=== PATIENT | male | born 1990 | race African-American/Black ===

== ENCOUNTER 2019-03-07 08:59 | Emergency (ER) | payer OTHER, SELFPAY ==
[2019-03-07 09:05] VITALS: BP 139/87; PULSE 81; RESP 18; TEMP 36.2; O2SAT 99; BMI 33.7
--- NOTE | 2019-03-07 09:54 | ED.BACK ---
HPI - Back Pain/Injury General Chief Complaint: Back Pain/Injury Stated Complaint: NECK AND BACK PAIN Time Seen by Provider: 03/07/19 09:54 Source: patient Mode of arrival: ambulatory Limitations: no limitations History of Present Illness HPI Narrative: 28-year-old male comes to the emergency department with complaint of neck pain that radiates particularly to his right shoulder. Patient states that it is particularly uncomfortable when he stands up or rotates his neck does not matter if he is rotating left or right. Patient also states if he tries to lift weights if he tries to push his arms above his head it is very uncomfortable. He denies any radiation all way down his arm, he denies any weakness, numbness or difficulty with employee relations assistant. He denies any trauma, recent injuries. He denies any other medical problems. He has had a microdiskectomy on his lumbar spine. He has been taking Motrin 600 mg with some improvement. Patient has not been lifting weights since he started having symptoms. He states it does feel little bit tight and almost a burning sensation. Related Data Previous Rx's Medication Instructions Recorded prednisone 50 mg PO DAILY #5 tab 03/07/19 tramadol [Ultram] 50 mg PO Q6H PRN #10 tab 03/07/19 Allergies Allergy/AdvReac Type Severity Reaction Status Date / Time No Known Allergies Allergy Uncoded 03/07/19 09:23 Review of Systems Review of Systems ROS Unobtainable: All systems reviewed & are unremarkable except as noted in HPI and below Constitutional Denies chills and Denies fever(s) ENT Ears, Nose, Mouth, and Throat: Reports neck pain Cardiovascular Denies chest pain and Denies dyspnea Respiratory Denies dyspnea Gastrointestinal Gastrointestinal: Denies abdominal pain, Denies change in bowel habits, Denies fecal incontinence, Denies diarrhea, Denies nausea and Denies vomiting Genitourinary Denies urinary frequency, Denies urinary incontinence and Denies urinary urgency Musculoskeletal Reports as per HPI, Denies muscle weakness, Reports neck pain, Denies numbness, Reports radiating pain into limb (right ) and Denies tingling Neurologic Denies focal weakness, Denies numbness, Denies sensory deficit and Denies tingling PFS Surgical History (Updated 03/07/19 @ 10:23 by Fernanda Torres DO) S/P lumbar microdiscectomy (Chronic) Social History Smoking Status: Never smoker Social History Smoking Status: Never smoker Exam Narrative Exam Narrative: GENERAL: Alert and oriented x three, large, well-appearing male in mild distress. HEENT: Head normocephalic, atraumatic, EOMI, pupils reactive, face symmetric, moist mucous membranes NECK: Supple, full range of motion although patient moves his neck slowly. He holds his neck in very straight alignment. Patient has increased pain with Spurling's particularly on the right, S patient states he can't notices symptoms are increased on the left but not a significantly. No bony tenderness of the cervical, thoracic or lumbar spine. CARDIOVASCULAR: Regular rate and rhythm without murmurs, rubs or gallops. RESPIRATORY: Breath sounds equal bilaterally, no wheezes rales or rhonchi. ABDOMEN: Soft, nontender. Normoactive bowel sounds all 4 quadrants. No guarding or rebound, rigidity, no mass EXTREMITIES: Normal range of motion, no clubbing or edema. 5/5 muscle strength in upper extremities with equal employee relations assistant bilaterally and with push and pull. Normal sensation in upper extremities. 2+ radial pulses bilaterally. Neurovascularly intact NEUROLOGICAL: Cranial nerves II through XII grossly intact. Moving all extremities SKIN: Warm, dry, no petechiae, no rashes or lesions. Initial Vital Signs Initial Vital Signs: Vital Signs Temperature 97.2 F L 03/07/19 09:05 Pulse Rate 81 03/07/19 09:05 Respiratory Rate 18 03/07/19 09:05 Blood Pressure 139/87 03/07/19 09:05 Pulse Oximetry 99 03/07/19 09:05 Course Orders Ordered: ED Orders 03/07/19 10:04 XR cervical spine 2V or 3V Stat Vital Signs - 8 hr 03/07/19 09:05 Temperature 97.2 F L Pulse Rate 81 Respiratory Rate 18 Blood Pressure 139/87 Pulse Oximetry 99 MDM - Back Pain/Injury Imaging Data C-spine x-ray: Radiologist's impression: [address] [address] XRay Report Signed Patient: Dallas Restrepo JMR#: [id number] : 1990Acct:[id number] Age/Sex: 28 / MDate of Service: 03/07/19 Loc: ED Accession Number: [id number] Procedure: XR cervical spine 2V or 3V Ordering Provider: Fernanda Torres D.O. PROCEDURE: XR CERVICAL SPINE 2V OR 3V INDICATIONS: neck pain, radiates down arm worse w/ rotation TECHNIQUE: 3 view(s) of the cervical spine were acquired. COMPARISON: None. FINDINGS: Bones: No fractures or dislocations to the C7 level. There is loss of the expected cervical lordosis. The lateral masses of C1 appear intact on the odontoid view. No suspicious bony lesions. Soft tissues: No prevertebral soft tissue swelling. IMPRESSION: No acute radiographic findings. Dictated by: Bina Catherine M.D. on 03/07/2019 at 9:40 Approved by: Bina Catherine M.D. on 03/07/2019 at 9:41 Discharge Plan Departure Patient Disposition: Home Clinical Impression: Cervical radiculopathy Discharge Date/Time: 03/07/19 11:05 Interventions: ED Discharge Assessment Last Done: 03/07/19 11:05 Instructions: DI for Cervical Radiculopathy Activity Restrictions/Additional Instructions: Follow up with primary care physician and/or orthopedic surgery in the next 3-5 days for recheck. Call for an appointment. Take or disc with images with you. You may continue ibuprofen up to 600 mg every 6 hours as needed. You may take additional pain medication for breakthrough pain, this medication can make you sleepy do not drive, perform hazardous activities or make any major decisions while taking it. Take steroids until completely gone. Return to the ER for new or worsening symptoms, fever greater than 100.4 F, new weakness, numbness, inability to employee relations assistant, passing out, new chest pain shortness of breath, persistent vomiting or other new or concerning symptoms Prescriptions: New prednisone 50 mg tablet 50 mg PO DAILY Qty: 5 RF: 0 tramadol [Ultram] 50 mg tablet 50 mg PO Q6H PRN (Reason: pain) Qty: 10 RF: 0
--- NOTE | 2019-03-07 10:04 | DI.RAD.S_ITS ---
PROCEDURE: XR CERVICAL SPINE 2V OR 3V INDICATIONS: neck pain, radiates down arm worse w/ rotation TECHNIQUE: 3 view(s) of the cervical spine were acquired. COMPARISON: None. FINDINGS: Bones: No fractures or dislocations to the C7 level. There is loss of the expected cervical lordosis. The lateral masses of C1 appear intact on the odontoid view. No suspicious bony lesions. Soft tissues: No prevertebral soft tissue swelling. IMPRESSION: No acute radiographic findings. Dictated by: Bina Catherine M.D. on 03/07/2019 at 9:40 Approved by: Bina Catherine M.D. on 03/07/2019 at 9:41
--- NOTE | 2019-03-07 10:27 | ED_ITS ---
HPI - Back Pain/Injury General Chief Complaint: Back Pain/Injury Stated Complaint: NECK AND BACK PAIN Time Seen by Provider: 03/07/19 09:54 Source: patient Mode of arrival: ambulatory Limitations: no limitations History of Present Illness HPI Narrative: 28-year-old male comes to the emergency department with complaint of neck pain that radiates particularly to his right shoulder. Patient states that it is particularly uncomfortable when he stands up or rotates his neck does not matter if he is rotating left or right. Patient also states if he tries to lift weights if he tries to push his arms above his head it is very uncomfortable. He denies any radiation all way down his arm, he denies any weakness, numbness or difficulty with field broomer. He denies any trauma, recent injuries. He denies any other medical problems. He has had a microdiskectomy on his lumbar spine. He has been taking Motrin 600 mg with some improvement. Patient has not been lifting weights since he started having symptoms. He states it does feel little bit tight and almost a burning sensation. Related Data Previous Rx's Medication Instructions Recorded prednisone 50 mg PO DAILY #5 tab 03/07/19 tramadol [Ultram] 50 mg PO Q6H PRN #10 tab 03/07/19 Allergies Allergy/AdvReac Type Severity Reaction Status Date / Time No Known Allergies Allergy Uncoded 03/07/19 09:23 Review of Systems Review of Systems ROS Unobtainable: All systems reviewed & are unremarkable except as noted in HPI and below Constitutional Denies chills and Denies fever(s) ENT Ears, Nose, Mouth, and Throat: Reports neck pain Cardiovascular Denies chest pain and Denies dyspnea Respiratory Denies dyspnea Gastrointestinal Gastrointestinal: Denies abdominal pain, Denies change in bowel habits, Denies fecal incontinence, Denies diarrhea, Denies nausea and Denies vomiting Genitourinary Denies urinary frequency, Denies urinary incontinence and Denies urinary urgency Musculoskeletal Reports as per HPI, Denies muscle weakness, Reports neck pain, Denies numbness, Reports radiating pain into limb (right ) and Denies tingling Neurologic Denies focal weakness, Denies numbness, Denies sensory deficit and Denies tingling PFS Surgical History (Updated 03/07/19 @ 10:23 by Fernanda Torres DO) S/P lumbar microdiscectomy (Chronic) Social History Smoking Status: Never smoker Social History Smoking Status: Never smoker Exam Narrative Exam Narrative: GENERAL: Alert and oriented x three, large, well-appearing male in mild distress. HEENT: Head normocephalic, atraumatic, EOMI, pupils reactive, face symmetric, moist mucous membranes NECK: Supple, full range of motion although patient moves his neck slowly. He holds his neck in very straight alignment. Patient has increased pain with Spurling's particularly on the right, S patient states he can't notices symptoms are increased on the left but not a significantly. No bony tenderness of the cervical, thoracic or lumbar spine. CARDIOVASCULAR: Regular rate and rhythm without murmurs, rubs or gallops. RESPIRATORY: Breath sounds equal bilaterally, no wheezes rales or rhonchi. ABDOMEN: Soft, nontender. Normoactive bowel sounds all 4 quadrants. No guarding or rebound, rigidity, no mass EXTREMITIES: Normal range of motion, no clubbing or edema. 5/5 muscle strength in upper extremities with equal field broomer bilaterally and with push and pull. Normal sensation in upper extremities. 2+ radial pulses bilaterally. Neurovascularly intact NEUROLOGICAL: Cranial nerves II through XII grossly intact. Moving all extremities SKIN: Warm, dry, no petechiae, no rashes or lesions. Initial Vital Signs Initial Vital Signs: Vital Signs Temperature 97.2 F L 03/07/19 09:05 Pulse Rate 81 03/07/19 09:05 Respiratory Rate 18 03/07/19 09:05 Blood Pressure 139/87 03/07/19 09:05 Pulse Oximetry 99 03/07/19 09:05 Course Orders Ordered: ED Orders 03/07/19 10:04 XR cervical spine 2V or 3V Stat Vital Signs - 8 hr 03/07/19 09:05 Temperature 97.2 F L Pulse Rate 81 Respiratory Rate 18 Blood Pressure 139/87 Pulse Oximetry 99 MDM - Back Pain/Injury Imaging Data C-spine x-ray: Radiologist's impression: [address] [address] XRay Report Signed Patient: Dallas Restrepo JMR#: [id number] : 1990Acct:[id number] Age/Sex: 28 / MDate of Service: 03/07/19 Loc: ED Accession Number: [id number] Procedure: XR cervical spine 2V or 3V Ordering Provider: Fernanda Torres D.O. PROCEDURE: XR CERVICAL SPINE 2V OR 3V INDICATIONS: neck pain, radiates down arm worse w/ rotation TECHNIQUE: 3 view(s) of the cervical spine were acquired. COMPARISON: None. FINDINGS: Bones: No fractures or dislocations to the C7 level. There is loss of the expected cervical lordosis. The lateral masses of C1 appear intact on the odontoid view. No suspicious bony lesions. Soft tissues: No prevertebral soft tissue swelling. IMPRESSION: No acute radiographic findings. Dictated by: Bina Catherine M.D. on 03/07/2019 at 9:40 Approved by: Bina Catherine M.D. on 03/07/2019 at 9:41 Discharge Plan Departure Patient Disposition: Home Clinical Impression: Cervical radiculopathy Discharge Date/Time: 03/07/19 11:05 Interventions: ED Discharge Assessment Last Done: 03/07/19 11:05 Instructions: DI for Cervical Radiculopathy Activity Restrictions/Additional Instructions: Follow up with primary care physician and/or orthopedic surgery in the next 3-5 days for recheck. Call for an appointment. Take or disc with images with you. You may continue ibuprofen up to 600 mg every 6 hours as needed. You may take additional pain medication for breakthrough pain, this medication can make you sleepy do not drive, perform hazardous activities or make any major decisions while taking it. Take steroids until completely gone. Return to the ER for new or worsening symptoms, fever greater than 100.4 F, new weakness, numbness, inability to field broomer, passing out, new chest pain shortness of breath, persistent vomiting or other new or concerning symptoms Prescriptions: New prednisone 50 mg tablet 50 mg PO DAILY Qty: 5 RF: 0 tramadol [Ultram] 50 mg tablet 50 mg PO Q6H PRN (Reason: pain) Qty: 10 RF: 0
[2019-03-07 11:01] VITALS: BP 130/78; PULSE 77; RESP 16; O2SAT 99
== END 2019-03-07 11:05 | disposition home or self-care (01) ==
PROVIDERS: Emergency Provider Emergency Medicine
DX: M54.12 Radiculopathy, cervical region (principal)
CPT/HCPCS: 72040; 99282; 99283